=== PATIENT | male | born 1960 | race Caucasian/White ===

== ENCOUNTER 2021-01-15 18:45 | Emergency (ER) | payer MEDICARE ==
[2021-01-15] MEDS ORDERED: LORazepam 2 MG/ML VIAL IVP STA (19:37)
[2021-01-15] MEDS ORDERED: SODIUM CHLORIDE 0.9% 1,000 ML IV STA (19:37)
[2021-01-15] MEDS ORDERED: SODIUM CHLORIDE 0.9% 2,000 ML IV STA (19:39)
--- NOTE | 2021-01-15 19:40 | ED Physician Documentation ---
PD HPI DYSPNEA - Stated complaint Stated Complaint: C+,COUGH,SOA,FEVER - Chief complaint Chief Complaint: Resp - History obtained from History obtained from: Patient - History of Present Illness Timing - onset: Today, How many days ago (12) Timing - onset during: Rest Timing - duration: Days (12) Timing - details: Gradual onset Pain level max: 5 Pain level now: 4 Improved by: Rest Worsened by: Exertion, Coughing Associated symptoms: Fever, Cough. No: Wheezing, Chest pain / discomfort, Palpitations, Diaphoresis, Bilateral edema Recently seen: Not recently seen - Additional information Additional information: Patient is an unvaccinated for Covid 60-year-old male who presents with increasing difficulty breathing over the past 2 to 3 days. For started having symptoms about 12 to 13 days ago. Positive test at [facility] 9 days ago. States he does not smoke. No history of lung issues. Does have a history of hypertension. He states he has had nausea, vomiting, diarrhea. Review of Systems Ten Systems: 10 systems reviewed and negative Nose: denies: Rhinorrhea / runny nose, Congestion Skin: denies: Rash Musculoskeletal: denies: Neck pain, Back pain Neurologic: denies: Headache PD PAST MEDICAL HISTORY - Past Medical History Past Medical History: Yes Cardiovascular: Hypertension - Past Surgical History Past Surgical History: No - Present Medications Home Medications: Ambulatory Orders Medication Instructions Recorded Confirmed Albuterol Sulf [Ventolin Hfa 1 - 2 puffs INH Q4HR PRN #1 inhaler 01/15/21 Inhaler] LORazepam [Ativan] 0.5 mg PO BID PRN #7 tablet 01/15/21 - Allergies Allergies/Adverse Reactions: Allergies Allergy/AdvReac Type Severity Reaction Status Date / Time No Known Drug Allergies Allergy Verified 01/15/21 19:30 - Living Situation Living Arrangement: reports: At home - Social History Does the pt smoke?: No Does the pt have substance abuse?: No - Family History Family history: reports: Non contributory PD ED PE NORMAL - Vitals Vital signs reviewed: Yes - General General: Alert and oriented X 3, Well developed/nourished, Other (Patient appears anxious.) - HEENT HEENT: PERRL, Moist mucous membranes - Neck Neck: Supple, no meningeal sign - Cardiac Cardiac: Other (Tachycardic) - Respiratory Respiratory: No respiratory distress, Clear bilaterally - Abdomen Abdomen: Soft, Non tender, Non distended - Derm Derm: Warm and dry - Extremities Extremities: No edema, No calf tenderness / cord - Neuro Neuro: Alert and oriented X 3 - Psych Psych: Normal mood, Normal affect Results - Vitals Vitals: Vital Signs - 24 hr 01/15/21 01/15/21 01/15/21 19:15 20:56 21:20 Temperature 37.7 C 37.3 C Heart Rate 115 H 99 96 Respiratory 22 20 19 Rate Blood Pressure 145/85 H 132/80 H 120/74 O2 Saturation 94 94 95 Oxygen O2 Source Room air - Labs Labs: Laboratory Tests 01/15/21 01/15/21 01/15/21 19:56 19:56 19:56 WBC 5.0 RBC 4.77 Hgb 14.2 Hct 43.8 MCV 91.8 MCH 29.8 MCHC 32.4 RDW 13.1 Plt Count 209 MPV 9.5 Neut # (Auto) 3.7 Lymph # (Auto) 0.7 L Grayson # (Auto) 0.5 Eos # (Auto) 0.0 Baso # (Auto) 0.0 Absolute Nucleated RBC 0.00 Nucleated RBC % 0.0 Sodium 140 Potassium 3.2 L Chloride 99 L Carbon Dioxide 27 Anion Gap 14.0 H BUN 12 Creatinine 1.0 Estimated GFR (MDRD) 76 L Glucose 117 H Calcium 8.8 Total Bilirubin 0.6 AST 38 ALT 38 Alkaline Phosphatase 59 Total Protein 7.8 Albumin 3.8 Globulin 4.0 Albumin/Globulin Ratio 1.0 Lipase 31 Nasal Adenovirus (PCR) NOT DETECTED Nasal B. parapertussis DNA (PCR) NOT DETECTED Nasal Coronavir 229E PCR NOT DETECTED Nasal Coronavir HKU1 PCR NOT DETECTED Nasal Coronavir NL63 PCR NOT DETECTED Nasal Coronavir OC43 PCR NOT DETECTED Nasal Enterovir/Rhinovir PCR NOT DETECTED Nasal Influenza B PCR NOT DETECTED Nasal Influenza A PCR NOT DETECTED Nasal Parainfluen 1 PCR NOT DETECTED Nasal Parainfluen 2 PCR NOT DETECTED Nasal Parainfluen 3 PCR NOT DETECTED Nasal Parainfluen 4 PCR NOT DETECTED Nasal RSV (PCR) NOT DETECTED Nasal B.pertussis DNA PCR NOT DETECTED Nasal C.pneumoniae (PCR) NOT DETECTED Manuel Human Metapneumo PCR NOT DETECTED Nasal M.pneumoniae (PCR) NOT DETECTED Nasal SARS-CoV-2 (PCR) DETECTED A - Rads (name of study) Chest x-ray Radiology: Final report received, EMP read contemporaneously, See rad report PD MEDICAL DECISION MAKING - ED course Complexity details: reviewed results, re-evaluated patient, considered differential, d/w patient ED course: 60-year-old male with Covid. No hypoxia. Dyspnea resolved with Ativan. Will prescribe an inhaler and Ativan for home. He did have one episode of transient hypoxia to 92, resolved quickly with taking a deep breath. He does not want to be admitted to the hospital and refuses admission at this time. He states he will return if he worsens in any way. Patient counseled regarding signs and symptoms for which I believe and urgent re-evaluation would be necessary. Patient with good understanding of and agreement to plan and is comfortable going home at this time This document was made in part using voice recognition software. While efforts are made to proofread this document, sound alike and grammatical errors may occur. IMPRESSION: Diffuse interstitial prominence and patchy bibasilar airspace opacities compatible with infectious/inflammatory process with viral etiology most likely. Findings are compatible with reported history of COVID infection. Departure - Departure Disposition: 01 Home, Self Care Clinical Impression: COVID-19 Condition: Good Instructions: COVID-19 [facility] Department Statement Follow-Up: your,doctor in 3 days [Other] Prescriptions: Albuterol Sulf [Ventolin Hfa Inhaler] 1 - 2 puffs INH Q4HR PRN #1 inhaler PRN Reason: Shortness Of Air/Wheezing LORazepam [Ativan] 0.5 mg PO BID PRN #7 tablet PRN Reason: Anxiety Comments: You have been evaluated for COVID-19 today. You have tested positive. Your oxygen levels are still between 95 and 96% on room air. We did discuss staying in the hospital, but you have declined this at this time. If you worsen or are feeling more short of breath, you need to return for repeat evaluation. Your prescriptions were sent to [facility] in [place].
[2021-01-15 20:04] LABS: BASOPHILS % (AUTO) 0.2 %; EOSINOPHILS % (AUTO) 0.6 %; HCT - HEMATOCRIT 43.8 % (42.0-52.0); HGB - HEMOGLOBIN 14.2 g/dL (14.0-18.0); LYMPHOCYTES # (AUTO) 0.7 10^3/uL (1.5-3.5); LYMPHOCYTES % (AUTO) 14.7 %; MEAN CORPUSCULAR HEMOGLOBIN 29.8 pg (27.0-31.0); MEAN CORPUSCULAR HGB CONC 32.4 g/dL (32.0-36.0); MEAN CORPUSCULAR VOLUME 91.8 fL (80.0-94.0); MEAN PLATELET VOLUME 9.5 fL (7.4-11.4); MONOCYTES # (AUTO) 0.5 10^3/uL (0.0-1.0); MONOCYTES % (AUTO) 9.7 %; NEUTROPHILS # (AUTO) 3.7 10^3/uL (1.5-6.6); NEUTROPHILS % (AUTO) 74.2 %; PLT - PLATELET COUNT 209 10^3/uL (130-450); RED BLOOD COUNT 4.77 10^6/uL (4.70-6.10); RED CELL DISTRIBUTION WIDTH 13.1 % (12.0-15.0)
[2021-01-15 20:14] LABS: ALBUMIN 3.8 g/dL (3.2-5.5); BILIRUBIN,TOTAL 0.6 mg/dL (0.2-1.0); CALCIUM 8.8 mg/dL (8.5-10.3); POTASSIUM 3.2 mmol/L (3.5-5.0); TOTAL PROTEIN 7.8 g/dL (6.7-8.2)
--- NOTE | 2021-01-15 20:54 | XRAY Report ---
PROCEDURE: Chest 1 View X-Ray INDICATIONS: dyspnea, +covid TECHNIQUE: One view of the chest was acquired. COMPARISON: None. FINDINGS: Surgical changes and devices: None. Lungs and pleura: Diffuse interstitial prominence. Patchy bibasilar airspace opacities. Mild perihila r airway thickening. No pneumothorax or pleural effusion. Mediastinum: Mediastinal contours appear normal. Heart size is normal. Bones and chest wall: No suspicious bony lesions. Overlying soft tissues appear unremarkable. IMPRESSION: Diffuse interstitial prominence and patchy bibasilar airspace opacities compatible with infectious/in flammatory process with viral etiology most likely. Findings are compatible with reported history of COVID infection. Reviewed by: Veto Pa MD on 01/15/2021 8:53 PM PDT Approved by: Veto Pa MD on 01/15/2021 8:53 PM PDT Station ID: [id number]
[2021-01-15 20:59] LABS: B. PARAPERTUSSIS- RESP PCR PAN NOT DETECTED; B. PERTUSSIS- RESP PCR PANEL NOT DETECTED; C. PNEUMONIAE- RESP PCR PANEL NOT DETECTED; CORONAVIRUS 229E-RESP PCR NOT DETECTED; CORONAVIRUS HKU1-RESP PCR NOT DETECTED; CORONAVIRUS NL63-RESP PCR NOT DETECTED; CORONAVIRUS OC43-RESP PCR NOT DETECTED; HUMAN METAPNEUMOVIRUS NOT DETECTED; INFLUENZA A- RESP PCR PANEL NOT DETECTED; INFLUENZA B - RESP PCR PANEL NOT DETECTED; M. PNEUMONIAE- RESP PCR PANEL NOT DETECTED; PARAINFLUENZA VIRUS 1 NOT DETECTED; PARAINFLUENZA VIRUS 2 NOT DETECTED; PARAINFLUENZA VIRUS 3 NOT DETECTED; PARAINFLUENZA VIRUS 4 NOT DETECTED; RHINOVIRUS/ENTEROVIRUS NOT DETECTED; RSV- RESP PCR PANEL NOT DETECTED; SARS-CoV-2 -RESP PCR PANEL DETECTED
[2021-01-15 21:21] VITALS: BP 120/74
== END 2021-01-15 21:50 | disposition home or self-care (01) ==
LOC: ED 18:45
DX: U07.1 COVID-19 (principal); I10 Essential (primary) hypertension
CPT/HCPCS: 36415; 71045; 80053; 83690; 85025; 87631; 96374; 99283; 99284; J2060; 0202U